=== PATIENT | female | born 2000 | race Caucasian/White ===

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

== ENCOUNTER → 2019-05-17 | Emergency (ER) | payer SELFPAY ==
[~2019-05-17] VITALS: Ht 160 cm; Wt 52.7 kg
[~2019-05-17] MED LIST changes: +TESSALON P100 MG/CAP PO; +TYLENOL 500MG500 MG PO; +ZOFRAN 4MG T4 MG/TAB PO
[2019-05-17 00:27] LABS: BASO % 0.3 % (0.0-2.0); EOS % 0.2 % (0-4.0); GRAN # 5.2 (1.4-6.5); GRAN % 60.1 % (42.2-75.2); HEMATOCRIT 39.5 % (35.0-45.0); HEMOGLOBIN 13.2 g/dl (12.0-15.0); LYMPH # 2.9 (1.2-3.4); LYMPH % 33.1 % (20.0-51.0); MEAN CELL VOLUME 85 fl (80.0-95.0); MEAN CORPUSCULAR HEMOGLOBIN 28 pg (26.0-32.0); MEAN CORPUSCULAR HGB CONC 33 g/dl (33.0-37.0); MEAN PLATELET VOLUME 8.6 fl (7.4-10.4); MONO # 0.5 (0.1-0.6); MONO % 6.1 % (1.7-9.3); PLATELET COUNT 612 K/mm3 (130-400); RED BLOOD COUNT 4.65 M/mm3 (4.10-5.30)
[2019-05-17 00:38] LABS: ACETAMINOPHEN < 10 ug/mL (10-30); ALANINE AMINOTRANSFERASE 15 U/L (9-52); ALBUMIN 4.5 gm/dL (3.5-5.0); ALCOHOL(ethanol),MEDICAL < 10 mg/dL; ALKALINE PHOSPHATASE 87 U/L (50-136); ANION GAP 11 mmol/L (7-16); AST,SGOT 19 U/L (15-37); BILIRUBIN,TOTAL 0.2 mg/dL (0.0-1.0); BLOOD UREA NITROGEN 13 mg/dL (7-17); CALCIUM 10.1 mg/dL (8.4-10.2); CARBON DIOXIDE 25 mmol/L (22-30); CHLORIDE 104 mmol/L (98-107); CREATININE, serum 0.44 (0.52-1.25); GLUCOSE 112 mg/dL (74-106); POTASSIUM 4.3 mmol/L (3.4-5.0); SALICYLATE < 1.0 mg/dL; SODIUM 140 mmol/L (137-145); TOTAL PROTEIN 8.1 gm/dL (6.4-8.2)
[2019-05-17 00:51] LABS: COLLECTION METHOD CLEAN CATCH
[2019-05-17 00:56] LABS: MUCOUS Present /lpf; PH 6 (5-8); SQUAMOUS EPITHELIAL 0-2 /hpf; URINE APPEARANCE Clear; URINE BACTERIA Rare /hpf; URINE BILIRUBIN Negative (NEGATIVE); URINE BLOOD Negative (NEGATIVE); URINE COLOR Straw; URINE GLUCOSE Negative (NEGATIVE); URINE KETONE Negative (NEGATIVE); URINE LEUKOCYTE ESTERASE Negative (NEGATIVE); URINE NITRATE Negative (NEGATIVE); URINE PROTEIN(semi-quant) Negative (NEGATIVE); URINE RBC 0-2 /hpf; URINE UROBILINOGEN Negative (NEGATIVE)
[2019-05-17 01:09] LABS: TRICYCLIC ANTIDEPRESS URINE NEGATIVE
[2019-05-17 03:00] VITALS: BP 112/84; PULSE 75; TEMP 97.9
== END ==
LOC: COL.ER
PROVIDERS: Nurse Practitioner
DX: F32.9 Major depressive disorder, single episode, unspecified (principal); F41.9 Anxiety disorder, unspecified; Z98.890 Other specified postprocedural states